=== PATIENT | female | born 1955 | race African-American/Black ===

== ENCOUNTER → 2016-11-10 | Outpatient (CLI) | payer OTHER ==
--- NOTE | ~2016-11-10 | CT2 ---
[facility] A Service of [facility] RADIOLOGY TEXT RESULTS PATIENT: GUILLERMO HUBBARD LOCATION: [facility] : 55 UNIT #: [id number] AGE: [address]: Damon Upton MD SEX: F ORDER DR: [id number] [facility] [place] [facility]. [place], [place] [address] [id number] O MR#: [id number] #: [id number] NAME: GUILLERMO HUBBARD : 1955 SEX: F STUDY DATE/TIME: 11/10/2016 13:29 UNIT: [facility] ROOM: STUDY DESCRIPTION: CT Abd and Pelv W Cont Attending Physician: Damon Upton M.D. Referring Physician: Damon Upton M.D. Ordering Physician: Damon Upton M.D. Primary Care Physician: Mehul Brito Aprn MEDICAL IMAGING REPORT This report is preliminary unless electronic signature is present EXAM CT abdomen and pelvis INDICATIONS Lower abdominal pain, 3-month duration. Prior umbilical abscess. TECHNIQUE CT of the abdomen and pelvis with p.o. and IV contrast (100 mL Isovue-370 IV contrast). Coronal and sagittal reconstructions were obtained. This CT exam was performed with one or more of the following radiation dose reduction techniques: automatic exposure control, adjustment of mA and/or kV according to patient size, and iterative reconstruction. COMPARISON CT abdomen and pelvis dated 06/20/2003. FINDINGS ABDOMEN: The solid abdominal organs are within normal limits. The gallbladder is not distended. The bowel is not dilated. The appendix is normal. No enlarged retroperitoneal or mesenteric lymph nodes. The abdominal aorta is normal caliber. PELVIS: No pelvic mass or free pelvic fluid. The uterus is surgically absent. The ovaries are not clearly identified and may be surgically absent or atrophic. No enlarged pelvic or inguinal mass. No acute osseous abnormalities. IMPRESSION 1. No acute findings of the abdomen and pelvis. [facility] A Service [facility] RADIOLOGY TEXT RESULTS PATIENT: GUILLERMO HUBBARD LOCATION: [facility] : 55 UNIT #: [id number] AGE: [address]: Damon Upton MD SEX: F ORDER DR: 2. No acute findings to account for patient's symptoms. Dictated by... Tramaine Trevizo M.D. THIS IS AN ELECTRONICALLY VERIFIED REPORT Tramaine Trevizo M.D. at 11/10/2016 8:08 PM RPC/pcl TD: 11/10/2016 16:43 JOB #: [id number] MEDICAL IMAGING REPORT Page 1 of 1 COPY
[2016-11-10 11:40] LABS: HEMATOCRIT 37.1 % (35.0-45.0); HEMOGLOBIN 12.2 gm/dL (12.0-16.0); MEAN CELL VOLUME 85.3 FL (83-96); MEAN CORPUSCULAR HGB CONC 32.8 g/dL (30-36); MEAN PLATELET VOLUME 9.6 FL (6.5-11.5); RED BLOOD COUNT 4.35 X10e (3.90-5.30); RED CELL DISTRIBUTION WIDTH 13.3 % (11.0-15.5); WHITE BLOOD COUNT 3.6 X10e3 (4.0-10.5)
[2016-11-10 12:25] LABS: ALBUMIN SERUM 4.1 g/dL (3.5-5.0); BILIRUBIN,TOTAL 0.9 mg/dL (0.2-2.0); CALCIUM SERUM 9.1 mg/dL (8.4-10.2); GLOM FILT RATE Estimated 70.9 mL/min (>60); POTASSIUM 4.5 mmol/L (3.5-5.1); PROTEIN TOTAL SERUM 7.4 g/dL (6.0-8.3)
== END | disposition home or self-care (01) ==
LOC: CCAT 10:59
PROVIDERS: Internal Medicine
DX: R10.30 Lower abdominal pain, unspecified (principal)
CPT/HCPCS: 36415; 74177; 80053; 82150; 83690; 85027; Q9967